=== PATIENT | female | born 1940 | race Caucasian/White ===

== ENCOUNTER 2017-06-20 10:04 | Emergency (ER) | payer OTHER ==
[~2017-06-20] VITALS: Ht 144.8 cm; Wt 100.0 kg
[~2017-06-20 10:04] MED LIST: CALC-137 PO; CHEL50TA PO; CLOP75 PO; FLON0.053; FLUO-1 PO; FURO1TAB93 PO; GABA300C3 PO; GLUCTAB PO; PERC5TAB12 PO; POTA-243 PO; PREG75 PO; PROBCAP15 PO; ROSU40 PO; TAB-TAB PO; VASO10TA8 PO; VITA500C PO; [UNRECOGNIZED DRUG - CODE] PO; [UNRECOGNIZED DRUG - OTHER] PO; [UNRECOGNIZED DRUG - REMARK] PO
[2017-06-20 10:08] VITALS: BP 151/74; PULSE 85; RESP 14; TEMP 97.8; O2SAT 96
[2017-06-20 10:28] VITALS: BP 139/62; PULSE 75; RESP 20; O2SAT 96
[2017-06-20] MEDS ORDERED: VITA2000 PO (10:39)
[2017-06-20] MEDS ORDERED: TIZA4CAP3 PO (10:39)
[2017-06-20] MEDS ORDERED: ENAL5TAB PO (10:39)
[2017-06-20] MEDS ORDERED: LYRI50CA PO (10:39)
[2017-06-20] MEDS ORDERED: FLUT50SP EACH NARE (10:39)
[2017-06-20] MEDS ORDERED: PROM12.54 PO (10:39)
[2017-06-20] MEDS ORDERED: ROSU1TAB4 PO (10:39)
[2017-06-20] MEDS ORDERED: HYDR-3583 PO (10:39)
[2017-06-20] MEDS ORDERED: SENN8.6T81 PO (10:39)
[2017-06-20] MEDS ORDERED: LACT1CAP18 (10:39)
[2017-06-20] MEDS ORDERED: PROZ20CA11 PO (10:39)
[2017-06-20] MEDS ORDERED: POTA10CA PO (10:39)
[2017-06-20] MEDS ORDERED: NITR0.4S SL (10:39)
[2017-06-20] MEDS ORDERED: PLAV75TA29 PO (10:39)
[2017-06-20] MEDS ORDERED: CENTCHW3 (10:39)
[2017-06-20] MEDS ORDERED: METF500T PO ×2 (10:39)
[2017-06-20] MEDS ORDERED: ZYRTEC PO (10:39)
[2017-06-20] MEDS ORDERED: FURO20TA PO (10:39)
--- NOTE | 2017-06-20 10:39 | PD ---
HPI Chief Complaint: Bleeding Time Seen by Provider: 10:28 Travel History International Travel<30 days: No Contact w/Intl Traveler<30days: No Traveled to known affect area: No History of Present Illness HPI The patient is a 76-year-old female who presents to the emergency department via private vehicle for bleeding varicose vein to the right lower extremity. The patient states the bleeding started last night, they applied pressure to the area, but continues to bleed. The patient's home health care nurse came by earlier today, noted it continued to bleed and put a pressure dressing over the affected area. She does have a history of bleeding varicose veins in the past which have needed treatment in the emergency department. She denies any lightheadedness, chest pain, shortness of breath with exertion, or dizziness. Symptoms are mild. PFSH Past Medical History Hx Anticoagulant Therapy: Yes (PLAVIX) Arthritis: Yes Asthma: No Autoimmune Disease: No Blood Disorders: No Anxiety: No Depression: No Heart Rhythm Problems: No Cancer: No Cardiovascular Problems: Yes High Cholesterol: Yes Chemotherapy: No Chest Pain: No Congestive Heart Failure: No COPD: No Cerebrovascular Accident: Yes (DENIES ANY RELATED DEFICITS - STATES X3) Diabetes: Yes Patient Takes Glucophage: Yes Diminished Hearing: No Endocrine: Yes Gastrointestinal Disorders: Yes GERD: No Glaucoma: No Genitourinary: Yes Headaches: No Hepatitis: No Hiatal Hernia: Yes Hypertension: Yes Immune Disorder: No Implanted Vascular Access Dvce: Yes Kidney Stones: No Musculoskeletal: Yes Neurologic: Yes Psychiatric: No Reproductive: No Respiratory: Yes Immunizations Current: Yes Migraines: No Myocardial Infarction: No Radiation Therapy: No Renal Failure: No Seizures: No Sickle Cell Disease: No Sleep Apnea: Yes Thyroid Disease: No Ulcer: No Tetanus Vaccination: Unknown Influenza Vaccination: Yes PNEUMOCCOCAL Vaccine (Year): 1 ?: Not Menopausal: Yes Past Surgical History Abdominal Surgery: Yes (EREN) AICD: No Appendectomy: Yes Arteriovenous Shunt: No Body Medical Devices: Rt. knee Cardiac Surgery: No Cholecystectomy: Yes Ear Surgery: No Endocrine Surgery: No Eye Surgery: No Gynecologic Surgery: Yes (hysterectomy) Hysterectomy: Yes Insulin Pump: No Joint Replacement: Yes (BILATERAL KNEES, maggy right hip) Oral Surgery: No Pacemaker: No Thoracic Surgery: No Other Surgery: Yes Social History Alcohol Use: No Tobacco Use: No Substance Use: No Allergies-Medications (Allergen,Severity, Reaction): Coded Allergies: acyclovir (Unverified Allergy, Severe, SEVERE HEADACHE, 06/20/17) amlodipine (Unverified Allergy, Severe, 06/20/17) aspirin (Unverified Allergy, Severe, BRUISES, 06/20/17) benazepril (Unverified Allergy, Severe, 06/20/17) cefaclor (Unverified Allergy, Severe, 06/20/17) clarithromycin (Unverified Allergy, Severe, 06/20/17) diclofenac (Unverified Allergy, Severe, 06/20/17) diltiazem (Unverified Allergy, Severe, RASH, 06/20/17) diphenhydramine (Unverified Allergy, Severe, Shortness of Breath, 06/20/17) doxycycline (Unverified Allergy, Severe, 06/20/17) erythromycin base (Unverified Allergy, Severe, 06/20/17) felodipine (Unverified Allergy, Severe, 06/20/17) fluvastatin (Unverified Allergy, Severe, HEARTBURN, 06/20/17) gabapentin (Unverified Allergy, Severe, 06/20/17) PT CURRENTLY TAKES THIS hydrochlorothiazide (Unverified Allergy, Severe, 06/20/17) hydrocortisone (Unverified Allergy, Severe, ITCHING, 06/20/17) ibuprofen (Unverified Allergy, Severe, 06/20/17) indomethacin (Unverified Allergy, Severe, 06/20/17) lansoprazole (Unverified Allergy, Severe, 06/20/17) latex (Unverified Allergy, Severe, 06/20/17) levofloxacin (Unverified Allergy, Severe, CANT FUNCTION, 06/20/17) lovastatin (Unverified Allergy, Severe, 06/20/17) methotrexate (Unverified Allergy, Severe, 06/20/17) metronidazole (Unverified Allergy, Severe, 06/20/17) minocycline (Unverified Allergy, Severe, 06/20/17) morphine (Unverified Allergy, Severe, INTENSE ITCHING, 06/20/17) niacin (Unverified Allergy, Severe, 06/20/17) nifedipine (Unverified Allergy, Severe, 06/20/17) oxaprozin (Unverified Allergy, Severe, HEADACHE, 06/20/17) pentazocine (Unverified Allergy, Severe, SWELLING, 06/20/17) pravastatin (Unverified Allergy, Severe, RASH AND ITCHING, 06/20/17) pseudoephedrine (Unverified Allergy, Severe, 06/20/17) rofecoxib (Unverified Allergy, Severe, 06/20/17) rosiglitazone (Unverified Allergy, Severe, 06/20/17) simvastatin (Unverified Allergy, Severe, 06/20/17) spironolactone (Unverified Allergy, Severe, 06/20/17) sulfasalazine (Unverified Allergy, Severe, 06/20/17) terfenadine (Unverified Allergy, Severe, 06/20/17) tigecycline (Unverified Allergy, Severe, 06/20/17) oseltamivir (Unverified Allergy, Intermediate, NAUSEA, 06/20/17) alendronate sodium (Unverified Allergy, Mild, GUMS SORE, 06/20/17) Uncoded Allergies: CARDIAC (Allergy, Severe, 12/17/16) GLYSET (Allergy, Severe, BACKS UP KIDNEYS, 05/04/11) Reported Meds & Prescriptions Reported Meds & Active Scripts Active Reported Centrum Silver (Multiple Vitamins W/ Minerals) 400 Mcg-250 Mcg Chw Promethazine (Promethazine HCl) 12.5 Mg Tab 12.5 Mg PO Q6H PRN [Zyrtec] 10 Mg PO DAILY Vitamin D3 (Cholecalciferol) 2,000 Unit Cap 4,000 Units PO DAILY Probiotic (Lactobacillus Combo No.10) 20 Billion Cell Capsule Nitrostat SL (Nitroglycerin) 0.4 Mg Subl 0.4 Mg SL DIRECTED PRN 1 tablet under the tongue as needed for chest pain. Repeat every 5 minutes for a total of 3 DOSES or call 911 if NO relief. Sennosides 8.6 Mg Tab 8.6 Mg PO HS Hydrocodone-Acetaminophen 10-325 mg Tab 1 Tab PO Q6H PRN Tizanidine (Tizanidine HCl) 4 Mg Cap 4 Mg PO BID Fluticasone Nasal [place] 50 Mcg/Act Naspr 50 Mcg EACH NARE HS 50 mcg/spray Prozac (Fluoxetine HCl) 20 Mg Cap 20 Mg PO DAILY Lyrica (Pregabalin) 50 Mg Cap 50 Mg PO BID Rosuvastatin (Rosuvastatin Calcium) 5 Mg Tab 5 Mg PO EVERY OTHER DAY Potassium Chloride ER (Potassium Chloride) 10 Meq Cap 10 Meq PO BID Furosemide 20 Mg Tab 20 Mg PO BID Metformin (Metformin HCl) 500 Mg Tab 500 Mg PO AC DINNER With a meal Metformin (Metformin HCl) 500 Mg Tab 1,000 Mg PO DAILYAC With a meal Enalapril (Enalapril Maleate) 5 Mg Tab 5 Mg PO DAILY Plavix (Clopidogrel Bisulfate) 75 Mg Tab 75 Mg PO DAILY [Equate Allery] 1 Tab PO HS [Exuate Lax [employer]] 25 Mg PO HS Review of Systems Except as stated in HPI: all other systems reviewed are Neg HENT: No: Lightheadedness Cardiovascular: No: Chest Pain or Discomfort, Dyspnea on exertion Respiratory: No: Shortness of Breath Gastrointestinal: No: Nausea Musculoskeletal: No: Weakness Skin: Positive Other (as noted in the history of present illness) Physical Exam Narrative GENERAL: Awake, alert, pleasant 76 year-old female who appears her stated age and is in no acute respiratory distress. SKIN: Focused skin assessment warm/dry. HEAD: Atraumatic. Normocephalic. EYES: No injection or drainage. MUSCULOSKELETAL: The patient has chronic venous stasis changes to lower extremities. Bleeding right superficial varicosity of the right lower extremity. NEUROLOGICAL: Awake and alert. No obvious cranial nerve deficits. Motor grossly within normal limits. Normal speech. PSYCHIATRIC: Appropriate mood and affect; insight and judgment normal. Data Data Last Documented VS Vital Signs Date Time Temp Pulse Resp B/P (MAP) Pulse Ox O2 Delivery O2 Flow Rate FiO2 06/20/17 10:28 75 20 139/62 (87) 96 Room Air 06/20/17 10:08 97.8 Orders Orders Tetanus/Diphtheria Tox Adult (Tetanus/Di (06/20/17 10:45) Lidocaine 1% Inj (50 Ml) (Xylocaine 1% I (06/20/17 10:45) Ed Discharge Order (06/20/17 11:53) MDM Medical Decision Making Medical Screen Exam Complete: Yes Emergency Medical Condition: Yes Medical Record Reviewed: Yes Differential Diagnosis Differential diagnosis includes varicosity bleed, coagulopathy, anemia, venous bleed, arterial bleed. Narrative Course The patient superficial varicosity bleed was ligated by the physician blood donor unit assistant , please refer to the procedure note. The patient's tetanus shot was updated. There is no further bleeding, the patient was able to ambulate without bleeding. She is advised to allow the suture to dissolve, wound care instructions, follow-up with her primary physician. Diagnosis Primary Impression: Bleeding from varicose vein Patient Instructions: General Instructions Additional Instructions: The suture will dissolve on its own. Wound care instructions. Follow-up with her primary physician. Return if symptoms worsen or progress. Med/Other Pt SpecificInfo: No Change to Meds Disposition: 01 DISCHARGE HOME Condition: Stable Geovanny Rand MD Jun 20, 2017 10:39
[2017-06-20] MEDS ORDERED: LIDOCAINE HCL 1% 50 ML VIAL INFIL ONE (10:45)
[2017-06-20] MEDS ORDERED: TETANUS/DIPHTHERIA TOXOID ADULT 0.5 ML VIAL IM ONE (10:45)
[2017-06-20 11:57] VITALS: BP 151/78
[2017-06-21] MEDS ORDERED: CETI-1 PO (14:18)
--- NOTE | 2017-07-01 10:31 | PD ---
Physical Exam Date Seen by Provider: Jun 20, 2017 Time Seen by Provider: 10:25 Narrative 76-year-old patient previously seen by Dr. Rand. I was asked by Dr. Rand to ligature a small varicose vein that was bleeding. Please see my procedure note Data Data Orders Orders Tetanus/Diphtheria Tox Adult (Tetanus/Di (06/20/17 10:45) Lidocaine 1% Inj (50 Ml) (Xylocaine 1% I (06/20/17 10:45) Ed Discharge Order (06/20/17 11:53) MDM Medical Record Reviewed: Yes Supervised Visit with YOSI: Yes Procedures Procedure Narrative Varicose vein bleed LOCATION: Right lower lateral chung LENGTH: 2 mL NUMBER OF STITCHES/TAL: 2 simple interrupted REPAIR: The area of the laceration was prepped with Betadine and sterilely draped. The laceration was infiltrated with 1.5 mL's 1% lidocaine with epi.. The wound was copiously irrigated and explored without evidence of foreign body , tendon injury or neurovascular injury. The wound was closed using 5-0 Vicryl. This was a single layer repair. A sterile dressing was applied. The patient was advised to keep the dressing clean and dry. Patient tolerated the procedure well. Diagnosis Primary Impression: Bleeding from varicose vein Patient Instructions: General Instructions, Care For Your Stitches (ED), Varicose Veins (GEN) Departure Forms: Tests/Procedures Additional Instruction: The suture will dissolve on its own. Wound care instructions. Follow-up with her primary physician. Return if symptoms worsen or progress. Disposition: 01 DISCHARGE HOME Condition: Stable Rusty Soler Jul 01, 2017 10:31
== END 2017-06-20 12:03 | disposition home or self-care (01) ==
LOC: NEPC 10:04
DX: I83.891 Varicose veins of right lower extremity with other complications (principal); E11.9 Type 2 diabetes mellitus without complications; I10 Essential (primary) hypertension; M19.90 Unspecified osteoarthritis, unspecified site; E78.00 Pure hypercholesterolemia, unspecified; G47.30 Sleep apnea, unspecified; Z23 Encounter for immunization; Z79.01 Long term (current) use of anticoagulants; Z79.84 Long term (current) use of oral hypoglycemic drugs; Z86.79 Personal history of other diseases of the circulatory system; Z86.73 Personal history of transient ischemic attack (TIA), and cerebral infarction without residual deficits; Z87.19 Personal history of other diseases of the digestive system; Z87.448 Personal history of other diseases of urinary system; Z86.69 Personal history of other diseases of the nervous system and sense organs
CPT/HCPCS: 12001; 90471; 90714